=== PATIENT | male | born 2000 | race African-American/Black ===

== ENCOUNTER 2018-09-27 21:58 | Emergency (ER) | payer SELFPAY ==
[2018-09-27] MEDS ORDERED: Dexamethasone 10 MG/ML VIAL ONE (23:29)
== END 2018-09-27 23:33 | disposition home or self-care (01) ==
LOC: ERS 21:58
DX: J02.9 Acute pharyngitis, unspecified (principal)
CPT/HCPCS: 87081; 87430; 99283; J1100

== ENCOUNTER 2019-06-14 13:22 | Emergency (ER) | payer SELFPAY ==
[2019-06-14] MEDS ORDERED: Fluorescein Opthalmic Strip ONE (14:47)
[2019-06-14] MEDS ORDERED: Proparacaine 0.5% Opth 15 ML BOT ONE (14:47)
== END 2019-06-14 15:11 | disposition home or self-care (01) ==
LOC: ERS 13:22
DX: H10.9 Unspecified conjunctivitis (principal)
CPT/HCPCS: 99283